=== PATIENT | male | born 1950 | race Caucasian/White ===

== ENCOUNTER 2023-08-19 17:25 | Observation (INO) | payer MEDICARE, BC ==
[2023-08-19 18:41] LABS: ALT (SGPT) 79 U/L (8-55); AST (SGOT) 68 U/L (5-34); Albumin 4.7 g/dL (3.4-4.8); Alkaline Phosphatase 47 U/L (40-110); Anion Gap 14 mmol/L (10-20); BUN (Urea Nitrogen) 18 mg/dL (8.4-25.7); Bilirubin, Total 0.9 mg/dL (0.2-1.2); Calc. Creatinine Clearance 0 mL/min (70-130); Calcium 9.6 mg/dL (7.8-10.44); Carbon Dioxide 25 mmol/L (23-31); Chloride 105 mmol/L (98-107); Estimated GFR 66; Globulin 2.6 g/dL (2.4-3.5); Glucose 96 mg/dL (83-110); Magnesium 2.2 mg/dL (1.6-2.6); Potassium 4.4 mmol/L (3.5-5.1); Protein, Total 7.3 g/dL (5.8-8.1); Sodium 140 mmol/L (136-145)
[2023-08-19 18:43] LABS: Troponin I 0.025 ng/mL (< 0.028)
[2023-08-19 18:46] LABS: #Basophils 0.1 10x3/uL (0.0-0.2); #Neutrophils 7.4 10x3/uL (1.5-8.4); %Basophils 0.7 % (0.0-2.0); %Eosinophils 0.4 % (0.0-6.0); %Lymphocytes 14.1 % (18.0-47.0); %Monocytes 9.7 % (0.0-10.0); %Neutrophils 74.8 % (40.0-75.0); Hematocrit 45.7 % (38.8-50.0); Hemoglobin 15.4 g/dL (13.5-17.5); Mean Corpuscular HGB CONC 33.7 g/dL (32.0-36.0); Mean Corpuscular Hemoglobin 33.2 pg (27.0-33.0); Mean Corpuscular Volume 98.5 fl (81.2-95.1); Platelet Count 193 10x3/uL (150-450); RBC Distribution Width 12.4 % (11.5-14.5); Red Blood Cell (RBC) Count 4.64 10x6/uL (4.32-5.72); White Blood Cell (WBC) Count 9.9 10x3/uL (3.5-10.5)
[2023-08-19] MEDS ORDERED: Acetaminophen 500 MG TAB ONE (20:27)
[2023-08-19] MEDS ORDERED: Ondansetron PF 4 MG/2 ML Vial IVP PRN (21:12)
[2023-08-19 22:18] LABS: Troponin I 0.036 ng/mL (< 0.028)
[2023-08-19 22:35] VITALS: BMI 31.4
[2023-08-20 01:16] LABS: Troponin I 0.029 ng/mL (< 0.028)
[2023-08-20 03:40] LABS: #Basophils 0.1 10x3/uL (0.0-0.2); #Eosinphils 0.1 10x3/uL (0.0-0.5); #Monocytes 1.2 10x3/uL (0.0-1.1); #Neutrophils 4.8 10x3/uL (1.5-8.4); %Basophils 0.8 % (0.0-2.0); %Eosinophils 1.3 % (0.0-6.0); %Lymphocytes 27.3 % (18.0-47.0); %Monocytes 13.5 % (0.0-10.0); %Neutrophils 56.7 % (40.0-75.0); Hematocrit 42.4 % (38.8-50.0); Hemoglobin 14.3 g/dL (13.5-17.5); Mean Corpuscular HGB CONC 33.7 g/dL (32.0-36.0); Mean Corpuscular Hemoglobin 33.6 pg (27.0-33.0); Mean Corpuscular Volume 99.5 fl (81.2-95.1); Mean Platelet Volume 11.2 fl (7.4-10.4); Platelet Count 176 10x3/uL (150-450); RBC Distribution Width 12.3 % (11.5-14.5); Red Blood Cell (RBC) Count 4.26 10x6/uL (4.32-5.72); White Blood Cell (WBC) Count 8.5 10x3/uL (3.5-10.5)
[2023-08-20 03:55] LABS: Anion Gap 14 mmol/L (10-20); BUN (Urea Nitrogen) 16 mg/dL (8.4-25.7); Calc. Creatinine Clearance 90 mL/min (70-130); Calcium 8.9 mg/dL (7.8-10.44); Carbon Dioxide 24 mmol/L (23-31); Cardiac Risk 3.4 (Less than 4.5); Chloride 106 mmol/L (98-107); Cholesterol 177 mg/dl (< 200 Desired); Estimated GFR 74; Glucose 88 mg/dL (83-110); HDL Cholesterol 52 mg/dL (>60 Neg Risk); LDL Cholesterol, Calculated 109 mg/dL; Potassium 4.1 mmol/L (3.5-5.1); Sodium 140 mmol/L (136-145); Triglycerides 80 mg/dL (Less than 150)
[2023-08-20] MEDS: Acetaminophen 325 MG TAB PO PRN (07:57)
[2023-08-20] MEDS ORDERED: Losartan 25 MG TAB PO SCH (09:00)
[2023-08-20] MEDS: Enoxaparin 40 MG (0.4 mL) SYRINGE SC SCH (09:06)
[2023-08-20 16:18] VITALS: BP 175/81; TEMP 97.9
[2023-08-20] MEDS ORDERED: Ezetimibe 10 MG TAB PO SCH (21:00)
[2023-08-20] MEDS ORDERED: Verapamil 120 MG SR.TAB PO SCH (21:00)
== END 2023-08-20 17:31 | disposition home or self-care (01) ==
LOC: CSHERS 17:25 → CSHTELE 20:27
PROVIDERS: ADMIT Hospitalist; ATTEND Physician Assistant
DX: R55 Syncope and collapse (principal); I10 Essential (primary) hypertension; M19.90 Unspecified osteoarthritis, unspecified site; I44.7 Left bundle-branch block, unspecified; E11.9 Type 2 diabetes mellitus without complications; Z96.651 Presence of right artificial knee joint; Z79.899 Other long term (current) drug therapy; Z91.041 Radiographic dye allergy status; Z79.84 Long term (current) use of oral hypoglycemic drugs; Z98.890 Other specified postprocedural states
CPT/HCPCS: 70450; 71045; 80048; 80053; 80061; 83735; 84484 ×3; 85025 ×2; 93005; 93306; 93880; 96360; 96361; 96372; 99285; G0378 ×3; 36415; J1650

== ENCOUNTER 2024-11-23 11:00 | Emergency (ER) | payer MEDICARE, BC ==
[2024-11-23 11:33] LABS: #Basophils 0.06 10x3/uL (0.0-0.2); #Eosinophils 0.07 10x3/uL (0.0-0.5); #Monocytes 0.76 10x3/uL (0.0-1.1); #Neutrophils 3.92 10x3/uL (1.5-8.4); %Basophils 0.9 % (0.0-2.0); %Lymphocytes 30.8 % (18.0-47.0); %Monocytes 10.8 % (0.0-10.0); %Neutrophils 55.9 % (40.0-75.0); Hematocrit 50.8 % (38.8-50.0); Hemoglobin 16.8 g/dL (13.5-17.5); Mean Corpuscular HGB CONC 33.1 g/dL (32.0-36.0); Mean Corpuscular Hemoglobin 32.7 pg (27.0-33.0); Mean Corpuscular Volume 98.8 fL (81.2-95.1); Mean Platelet Volume 10.9 fL (7.4-10.4); Platelet Count 158 10x3/uL (150-450); RBC Distribution Width 12.1 % (11.5-14.5); Red Blood Cell (RBC) Count 5.14 10x6/uL (4.32-5.72); White Blood Cell (WBC) Count 7.01 10x3/uL (3.5-10.5)
[2024-11-23 11:47] LABS: ALT (SGPT) 123 U/L (Less than 45); AST (SGOT) 96 U/L (11-34); Albumin 5.1 g/dL (3.1-4.5); Alkaline Phosphatase 48 U/L (40-110); Anion Gap 13 mmol/L (10-20); BUN (Urea Nitrogen) 14 mg/dL (8.4-25.7); Bilirubin, Total 0.9 mg/dL (0.3-1.2); Calc. Creatinine Clearance 0 mL/min (70-130); Calcium 9.8 mg/dL (7.8-10.44); Carbon Dioxide 26 mmol/L (23-31); Chloride 105 mmol/L (98-107); Estimated GFR 67; Glucose 109 mg/dL (83-110); Potassium 4.4 mmol/L (3.5-5.1); Protein, Total 8.1 g/dL (5.8-8.1); Sodium 140 mmol/L (136-145)
[2024-11-23 11:48] LABS: Bilirubin Neg (Negative); Blood, Urine Negative (Negative); Glucose, Urine (Dipstick) Normal (Negative); Ketone, Urine Negative (Negative); Leukocyte 25 (Negative); Nitrite Negative (Negative); Protein, Urine (Dipstick) 30 mg/dl (Neg-Trace); Specific Gravity, Urine 1.015 (1.005-1.030); Urobilinogen Normal mg/dL (Less than 2); pH, Urine 6.5 (5.0-9.0)
[2024-11-23 11:53] LABS: Troponin I 0.011 ng/mL (< 0.028)
[2024-11-23 12:00] LABS: Clarity Clear (Clear)
[2024-11-23 12:01] LABS: Bacteria/HPF Rare-Few HPF (None Seen); CAUTI Indications for Culture Alt mental st,lethar; RBC/HPF None Seen HPF (0-3); Squamous Epithelial 0-3 HPF (0-3)
[2024-11-23 12:02] LABS: Urine Culture Reflex No No
== END 2024-11-23 13:33 | disposition home or self-care (01) ==
LOC: CSHERS 11:00
DX: R55 Syncope and collapse (principal); I44.7 Left bundle-branch block, unspecified; I10 Essential (primary) hypertension; E11.9 Type 2 diabetes mellitus without complications
CPT/HCPCS: 36415; 71045; 80053; 81001; 84484; 85025; 93005